=== PATIENT | female | born 1985 | race Caucasian/White ===

== ENCOUNTER 2017-10-02 12:54 | Emergency (ER) | payer OTHER ==
[2017-10-02 13:18] VITALS: BP 117/92
--- NOTE | 2017-10-02 13:44 | UC ---
Throat Pain/Nasal Wero HPI - HPI Summary HPI Summary: 1. sore throat x 1 day , no fever, + chills, fatigue, no cough, no nasal congestion 2. right wrist pain x 1 week. injury to right wrist one week ago, twisting injury - History of Current Complaint Chief Complaint: UCGeneralIllness Stated Complaint: ST AND RIGHT WRIST COMPLAINT Time Seen by Provider: 10/02/17 13:31 Hx Obtained From: Patient Hx Last Menstrual Period: CURRENT ?: No Onset/Duration: Gradual Onset, Lasting Days - 1, Still Present Severity: Moderate Pain Intensity: 6 Cough: None Associated Signs & Symptoms: Negative: Dysphagia, FB Sensation, Drooling, Wheezing, Hoarseness, Sinus Discomfort, Nasal Discharge, Fever, Rash - Allergies/Home Medications Allergies/Adverse Reactions: Allergies Allergy/AdvReac Type Severity Reaction Status Date / Time codeine Allergy Itching Verified 10/02/17 13:22 morphine Allergy Itching Verified 10/02/17 13:22 Penicillins Allergy Swelling Verified 10/02/17 13:22 Of Face,Lips,& Throat shellfish derived Allergy Itching Verified 10/02/17 13:22 PMH/Surg Hx/FS Hx/Imm Hx Previously Healthy: Yes - Surgical History Surgical History: Yes Surgery Procedure, Year, and Place: hx 4 c-sections 2004,2006,2008. Tubal - Family History Known Family History: Positive: Cardiac Disease, Hypertension - Social History Alcohol Use: Occasionally Substance Use Type: None Smoking Status (MU): Current Every Day Smoker Type: Cigarettes Amount Used/How Often: 1/2-1 1/2 ppd Length of Time of Smoking/Using Tobacco: 15 YRS Have You Smoked in the Last Year: Yes Household Exposure Type: Cigarettes Review of Systems Constitutional: Negative Skin: Negative Eyes: Negative ENT: Sore Throat Respiratory: Cough Cardiovascular: Negative Gastrointestinal: Negative Genitourinary: Negative Musculoskeletal: Other: - right wist pain Is Patient Immunocompromised?: No All Other Systems Reviewed And Are Negative: Yes Physical Exam Triage Information Reviewed: Yes Appearance: Well-Appearing, No Pain Distress, Well-Nourished Vital Signs: Initial Vital Signs Temp 99.0 F 10/02/17 13:12 Pulse 97 10/02/17 13:12 Resp 16 10/02/17 13:12 BP 117/92 10/02/17 13:12 Pulse Ox 99 10/02/17 13:12 Eye Exam: Normal Eyes: Positive: Conjunctiva Clear ENT: Positive: Normal ENT inspection, Hearing grossly normal, Pharynx normal, TMs normal. Negative: Nasal drainage Neck exam: Normal Neck: Positive: Supple, Nontender Respiratory: Positive: Chest non-tender, Lungs clear, Normal breath sounds Cardiovascular: Positive: RRR, No Murmur, Pulses Normal Abdominal Exam: Normal Musculoskeletal: Positive: Other: - right wrist : no swelling, + diffuse tenderness, pain with flexion and extension , Skin Exam: Normal Throat Pain/Nasal Course/Dx - Differential Dx/Diagnosis Provider Diagnoses: viral pharyngitis. sprain right wrist Discharge - Discharge Plan Condition: Stable Disposition: HOME Prescriptions: Naproxen [Naproxen EC 500 MG TAB] 500 mg PO BID #20 tablet. Patient Education Materials: Pharyngitis (ED), Wrist Sprain (ED) Forms: *Work Release Referrals: Zhanna Carpenter MD [Primary Care Provider] - 7 Days
== END 2017-10-02 13:44 | disposition home or self-care (01) ==
LOC: UCCORT 12:54
DX: J02.8 Acute pharyngitis due to other specified organisms (principal); S63.501A Unspecified sprain of right wrist, initial encounter; X50.1XXA Overexertion from prolonged static or awkward postures, initial encounter; Y93.9 Activity, unspecified; Y92.9 Unspecified place or not applicable; Z88.5 Allergy status to narcotic agent; Z88.0 Allergy status to penicillin; F17.210 Nicotine dependence, cigarettes, uncomplicated
CPT/HCPCS: 99212; G0463

== ENCOUNTER 2019-09-24 16:13 | Emergency (ER) | payer OTHER ==
[2019-09-24 16:59] VITALS: BP 102/78
--- NOTE | 2019-09-24 17:45 | UC ---
Back Pain HPI - HPI Summary HPI Summary: 34 yo female with chronic low back pain presents here after injuring back lifting boxes at work yesterday. pain is across lower back and spasmodic no bowel or bladder dysfunction no sciatica takes tylenol and diclofenac - History of Current Complaint Chief Complaint: UCBackPain Stated Complaint: BACK INJURY (WC) Time Seen by Provider: 09/24/19 17:34 Hx Obtained From: Patient Hx Last Menstrual Period: has had tubal Onset/Duration: Sudden Onset, Lasting Hours Timing: Constant Severity Initially: Severe Severity Currently: Severe Pain Intensity: 8 Pain Scale Used: 0-10 Numeric Back Pain: Is Diffuse Character: Throbbing, Spasmodic Aggravating Factor(s): Movement, Other - twisting Alleviating Factor(s): Nothing Associated Signs And Symptoms: Negative: Swelling, Redness, Bruising, Fever, Weakness, Abdominal Pain, Flank Pain, Bladder Incontinence, Bowel Incontinence, Weight Loss, Pain with Weight Bearing Related History: Similar Episode Dx As - back strain, Occupational Injury, Previous Back Injury Full Body (No Head): 1 - pain - Allergies/Home Medications Allergies/Adverse Reactions: Allergies Allergy/AdvReac Type Severity Reaction Status Date / Time codeine Allergy Itching Verified 09/24/19 16:59 morphine Allergy Itching Verified 09/24/19 16:59 Penicillins Allergy Swelling Verified 09/24/19 16:59 Of Face,Lips,& Throat shellfish derived Allergy Itching Verified 09/24/19 16:59 Sulfa (Sulfonamide Allergy Swelling Verified 09/24/19 16:59 Antibiotics) Of Face,Lips,& Throat Home Medications: Home Medications Acetaminophen [Extra Strength Non-Aspirin] 1,000 mg PO Q6H PRN 03/31/18 [ History Confirmed 09/24/19] Atorvastatin* [Lipitor 10 MG*] 40 mg PO QPM 03/31/18 [History Confirmed 09/24/19 ] Pnv No.95/Ferrous Fum/Folic AC [ Tablet] 1 tab PO DAILY 03/31/18 [ History Confirmed 09/24/19] Diclofenac Sodium EC TAB* [Voltaren EC TAB*] 50 mg PO BID 09/24/19 [History Confirmed 09/24/19] Erenumab-Aooe [Aimovig Autoinjector] 70 mg SQ MONTHLY 09/24/19 [History Confirmed 09/24/19] Omeprazole 20 mg PO DAILY 09/24/19 [History Confirmed 09/24/19] Topiramate TAB(*) [Topamax 25 MG tab] 50 mg PO BID 09/24/19 [History Confirmed 09/24/19] tiZANidine TAB* [Zanaflex TAB*] 2 mg PO TID PRN #15 tab 09/24/19 [Rx] PMH/Surg Hx/FS Hx/Imm Hx Previously Healthy: Yes Endocrine History: Dyslipidemia - Surgical History Surgical History: Yes Surgery Procedure, Year, and Place: hx 4 c-sections 2004,2006,2008. Tubal - Family History Known Family History: Positive: Cardiac Disease, Hypertension - Social History Alcohol Use: Rare Substance Use Type: None Smoking Status (MU): Light Every Day Tobacco Smoker Type: Cigarettes Amount Used/How Often: 1/2 ppd Length of Time of Smoking/Using Tobacco: 15 YRS Have You Smoked in the Last Year: Yes Household Exposure Type: Cigarettes Review of Systems All Other Systems Reviewed And Are Negative: Yes Constitutional: Positive: Negative Skin: Positive: Negative Eyes: Positive: Negative ENT: Positive: Negative Respiratory: Positive: Negative Cardiovascular: Positive: Negative Gastrointestinal: Positive: Negative Genitourinary: Positive: Negative Motor: Positive: Negative Neurovascular: Positive: Negative Musculoskeletal: Positive: Negative Neurological/Mental Status: Positive: Negative Psychological: Positive: Negative Physical Exam Triage Information Reviewed: Yes Appearance: Well-Appearing, No Pain Distress, Well-Nourished Vital Signs: Initial Vital Signs Temp 97.6 F 09/24/19 16:55 Pulse 78 09/24/19 16:55 Resp 16 09/24/19 16:55 BP 102/78 09/24/19 16:55 Pulse Ox 100 09/24/19 16:55 Vital Signs Reviewed: Yes Eyes: Positive: Conjunctiva Clear ENT: Positive: Hearing grossly normal. Negative: Nasal congestion, Nasal drainage, Tonsillar swelling, Tonsillar exudate, Hoarse voice Dental Exam: Normal Neck: Positive: Nontender, No Lymphadenopathy Respiratory: Positive: Lungs clear, Normal breath sounds, No respiratory distress, No accessory muscle use Cardiovascular: Positive: RRR, No Murmur Musculoskeletal: Positive: ROM Intact, No Edema Neurological: Positive: Alert Psychological Exam: Normal Skin Exam: Normal - Additional Comments Back- (-) SLR pain with twisting good flexion/extension Back Pain Course/Dx - Differential Dx/Diagnosis Provider Diagnosis: Acute myofascial strain of lumbar region Discharge ED - Sign-Out/Discharge Documenting (check all that apply): Patient Departure All imaging exams completed and their final reports reviewed: No Studies - Discharge Plan Condition: Stable Disposition: HOME Prescriptions: tiZANidine TAB* [Zanaflex TAB*] 2 mg PO TID PRN #15 tab PRN Reason: Spasms - Back Patient Education Materials: Low Back Strain (ED) Forms: *Work Release Referrals: Margarito Whitlock MD [Medical Doctor] - 1 Week (call tomorrow to set up an appt) - Billing Disposition and Condition Condition: STABLE Disposition: Home
== END 2019-09-24 18:00 | disposition home or self-care (01) ==
LOC: UCCORT 16:13
DX: S39.012A Strain of muscle, fascia and tendon of lower back, initial encounter (principal); E78.5 Hyperlipidemia, unspecified; F17.210 Nicotine dependence, cigarettes, uncomplicated; Z88.0 Allergy status to penicillin; Z88.2 Allergy status to sulfonamides; Z88.5 Allergy status to narcotic agent; Z91.013 Allergy to seafood; Z79.899 Other long term (current) drug therapy; X50.0XXA Overexertion from strenuous movement or load, initial encounter; Y92.9 Unspecified place or not applicable; Y99.0 Civilian activity done for income or pay
CPT/HCPCS: 99212; G0463

== ENCOUNTER 2024-01-01 14:18 | Inpatient (IN) ==
[2024-01-01 16:51] LABS: ABS Basophils 0.1 10^3/uL (0.0-0.1); ABS Lymphocytes 1.1 10^3/uL (1.0-4.8); ABS Monocytes 1.5 10^3/uL (0.0-0.9); ABS Neutrophils 18.2 10^3/uL (1.5-7.6); ABS Nucleated RBC 0.02 10^3/ul; Eosinophil % 0.2 %; Hematocrit 41.3 % (35-45); Hemoglobin 13.8 g/dL (11.5-14.3); Lymphocyte % 5.4 %; Mean Corpuscular Hemoglobin 29.7 pg (27-33); Mean Corpuscular Hgb Conc 33.5 g/dL (31-36); Mean Corpuscular Volume 88.9 fL (80-97); Mean Platelet Volume 8.1 fL (7.5-11.2); Nucleated Red Blood Cells % 0.1 %/100WBC (0.0-0.8); Platelet Count 445 10^3/uL (150-450); Red Blood Count 4.65 10^6/uL (3.63-4.92); Red Cell Distribution Width 14.4 % (12-17)
[2024-01-01 17:31] LABS: ALT 24 U/L (7-52); AST 18 U/L (13-39); Albumin/Globulin Ratio 1.5 (1-3); Alkaline Phosphatase 67 U/L (35-149); Anion Gap 6 mmol/L (2-16); Blood Urea Nitrogen 8 mg/dL (6-24); C Reactive Protein 40.22 mg/L (<8.01); CO2 Carbon Dioxide 32 mmol/L (22-32); Calcium 9.5 mg/dL (8.6-10.3); Chloride 96 mmol/L (101-111); Creatinine, Serum 0.59 mg/dL (0.51-0.95); Globulin 2.6 g/dL (2-4); Glucose 104 mg/dL (70-100); Magnesium 1.9 mg/dL (1.9-2.7); Potassium 4.4 mmol/L (3.5-5.0); Sodium 134 mmol/L (135-145); Total Bilirubin 0.5 mg/dL (0.2-1.0); Total Protein 6.6 g/dL (6.4-8.9); eGFR CKD-EPI 118.2 (>60)
[2024-01-01 17:36] LABS: HCG Pregnancy < 0.60 mIU/mL
[2024-01-01 17:37] LABS: Urine Appearance Extra Turbid; Urine Bilirubin Negative (Negative); Urine Blood 2+ (Negative); Urine Color Yellow; Urine Glucose Negative (Negative); Urine Ketones Negative (Negative); Urine Nitrite 2+ (Negative); Urine Protein 1+ (>=30 mg/dL) (Negative); Urine Specific Gravity 1.024 (1.002-1.030); Urine Urobilinogen Negative (Negative)
[2024-01-01 17:39] LABS: Urine Bacteria 3+ /HPF (Absent); Urine Red Blood Cell 1+(3-5/hpf) /HPF (0-Trace); Urine Squamous Epithelial Cell Present /HPF (Absent); Urine White Blood Cell 2+(11-20/hpf) /HPF (0-Trace)
[2024-01-01 18:57] LABS: Creatine Kinase 77 U/L (10-223)
[2024-01-01] MEDS: NS 0.9% 1000 ml BAG 1,000 ML IV ONE (19:11)
[2024-01-01] MEDS: Iohexol 300 (CONTRAST) 10 ML SDV IV ONE (22:40)
[2024-01-02] MEDS: Enoxaparin 40 MG/0.4 ML SYR SUBCUT SCH (01:57)
[2024-01-02] MEDS: cefTRIAXone 2 gm/50 mL D5W 2 GM/50 ML BAG IV SCH ×2 (02:34→21:41)
[2024-01-02 03:22] LABS: Erythrocyte Sed Rate 7 mm/Hr (0-19)
[2024-01-02] MEDS: metroNIDAZOLE IV 500 MG/100ML 500 MG/100 ML BAG IVPB SCH ×2 (03:54→13:42)
[2024-01-02 09:18] LABS: ABS Basophils 0.1 10^3/uL (0.0-0.1); ABS Eosinophils 0.1 10^3/uL (0.0-0.5); ABS Lymphocytes 1.7 10^3/uL (1.0-4.8); ABS Monocytes 1.2 10^3/uL (0.0-0.9); ABS Neutrophils 10.3 10^3/uL (1.5-7.6); Hematocrit 37.5 % (35-45); Hemoglobin 12.8 g/dL (11.5-14.3); Lymphocyte % 12.7 %; Mean Corpuscular Hemoglobin 30.2 pg (27-33); Mean Corpuscular Volume 88.7 fL (80-97); Mean Platelet Volume 7.8 fL (7.5-11.2); Platelet Count 406 10^3/uL (150-450); Red Blood Count 4.23 10^6/uL (3.63-4.92); Red Cell Distribution Width 14.1 % (12-17); White Blood Count 13.5 10^3/uL (3.8-11.8)
[2024-01-02] MEDS: Docusate LIQ 100 MG/10 ML UDC PO SCH (10:02)
[2024-01-02] MEDS: Polyethylene Glycol 3350 17 GM PACKET PO SCH (10:02)
[2024-01-02 10:21] LABS: Folate 5.64 ng/mL (5.90-24.80)
[2024-01-02] MEDS: Lactulose 30 ml UDC PO ONE (13:42)
[2024-01-02] MEDS ORDERED: Nicotine GUM 4MG FRUIT FLAVOR PO PRN (13:55)
[2024-01-02 14:30] LABS: Urine Benzodiazepine Screen None Detected (None Detect); Urine Buprenorphine Screen None Detected (None Detect); Urine Cannabinoids Screen None Detected (None Detect); Urine Fentanyl Screen None Detected (None Detect); Urine Hydrocodone Screen None Detected (None Detect); Urine Opiates Screen None Detected (None Detect)
[2024-01-02 14:46] LABS: Calcium 8.9 mg/dL (8.6-10.3); Creatinine, Serum 0.52 mg/dL (0.51-0.95); Potassium 4.3 mmol/L (3.5-5.0); eGFR CKD-EPI 121.9 (>60)
[2024-01-02] MEDS: Glycerin ADULT 2.4 gm SUPP PR ONE (20:09)
[2024-01-03 08:14] LABS: ABS Basophils 0.1 10^3/uL (0.0-0.1); ABS Eosinophils 0.2 10^3/uL (0.0-0.5); ABS Lymphocytes 1.4 10^3/uL (1.0-4.8); ABS Neutrophils 10.1 10^3/uL (1.5-7.6); ABS Nucleated RBC 0.01 10^3/ul; Eosinophil % 1.4 %; Hematocrit 34.9 % (35-45); Hemoglobin 11.8 g/dL (11.5-14.3); Lymphocyte % 10.9 %; Mean Corpuscular Hgb Conc 33.9 g/dL (31-36); Mean Corpuscular Volume 88.4 fL (80-97); Mean Platelet Volume 8.3 fL (7.5-11.2); Platelet Count 376 10^3/uL (150-450); Red Blood Count 3.95 10^6/uL (3.63-4.92); Red Cell Distribution Width 13.9 % (12-17); White Blood Count 12.9 10^3/uL (3.8-11.8)
[2024-01-03 08:49] LABS: Calcium 8.8 mg/dL (8.6-10.3); Creatinine, Serum 0.46 mg/dL (0.51-0.95); Magnesium 1.8 mg/dL (1.9-2.7); Potassium 4.3 mmol/L (3.5-5.0); eGFR CKD-EPI 125.5 (>60)
[2024-01-03 10:09] LABS: C Reactive Protein 116.73 mg/L (<8.01)
[2024-01-04 06:51] LABS: ABS Basophils 0.1 10^3/uL (0.0-0.1); ABS Eosinophils 0.3 10^3/uL (0.0-0.5); ABS Lymphocytes 1.7 10^3/uL (1.0-4.8); ABS Monocytes 0.9 10^3/uL (0.0-0.9); ABS Neutrophils 5.3 10^3/uL (1.5-7.6); Eosinophil % 3.2 %; Hematocrit 37.5 % (35-45); Hemoglobin 12.8 g/dL (11.5-14.3); Mean Corpuscular Hemoglobin 30.2 pg (27-33); Mean Corpuscular Hgb Conc 34.1 g/dL (31-36); Mean Corpuscular Volume 88.7 fL (80-97); Mean Platelet Volume 8.1 fL (7.5-11.2); Platelet Count 421 10^3/uL (150-450); Red Blood Count 4.23 10^6/uL (3.63-4.92); Red Cell Distribution Width 14.3 % (12-17); White Blood Count 8.3 10^3/uL (3.8-11.8)
[2024-01-04 07:30] LABS: Calcium 8.6 mg/dL (8.6-10.3); Creatinine, Serum 0.59 mg/dL (0.51-0.95); Magnesium 1.9 mg/dL (1.9-2.7); Potassium 4.7 mmol/L (3.5-5.0); eGFR CKD-EPI 118.2 (>60)
[2024-01-04] MEDS: Glycerin ADULT 2.4 gm SUPP PR ONE ×2 (09:29→13:12)
[2024-01-04 13:42] LABS: SS-A/Ro Antibody <0.2 U; SS-B/La Antibody <0.2 U
[2024-01-04 21:20] LABS: Anaplasma phagocytophilum Negative (Negative); B. miyamotoi PCR, B Negative (Negative); Babesia divergens/MO-1 Negative (Negative); Babesia ducani Negative (Negative); Ehrlichia chaffeensis Negative (Negative); Ehrlichia ewingii/canis Negative (Negative); Ehrlichia muris eauclairensis Negative (Negative)
[2024-01-05] MEDS: Magic MouthWash1-BEN/MAAL/LIDO 180 ML BTL SWISH SWAL SCH (05:45)
[2024-01-05] MEDS ORDERED: Senna TAB 8.6 mg TAB PO PRN (07:41)
[2024-01-05 07:48] LABS: ABS Basophils 0.1 10^3/uL (0.0-0.1); ABS Eosinophils 0.2 10^3/uL (0.0-0.5); ABS Lymphocytes 1.3 10^3/uL (1.0-4.8); ABS Monocytes 0.9 10^3/uL (0.0-0.9); ABS Neutrophils 6.6 10^3/uL (1.5-7.6); Eosinophil % 2.4 %; Hematocrit 36.5 % (35-45); Hemoglobin 12.4 g/dL (11.5-14.3); Lymphocyte % 14.6 %; Mean Corpuscular Volume 88.2 fL (80-97); Mean Platelet Volume 7.9 fL (7.5-11.2); Platelet Count 432 10^3/uL (150-450); Red Blood Count 4.14 10^6/uL (3.63-4.92); Red Cell Distribution Width 14.2 % (12-17); White Blood Count 9.1 10^3/uL (3.8-11.8)
[2024-01-05 08:29] LABS: Calcium 8.8 mg/dL (8.6-10.3); Creatinine, Serum 0.61 mg/dL (0.51-0.95); Magnesium 1.9 mg/dL (1.9-2.7); Potassium 5.1 mmol/L (3.5-5.0); eGFR CKD-EPI 117.3 (>60)
[2024-01-05] MEDS: Iohexol 350 (CONTRAST) 500 ML MDV IV ONE (17:31)
[2024-01-05] MEDS: Senna TAB 8.6 mg TAB PO SCH (21:10)
[2024-01-06] MEDS: methylPREDNISolone SOD SUCC 1000 MG ML VIAL IVPB SCH (12:37)
[2024-01-06] MEDS: SMOG Enema (MgOH-NS-Gly-MinO) 330 ML ENEMA PR ONE (12:37)
[2024-01-06] MEDS: Pantoprazole VIAL 40 MG VIAL IV SCH (12:46)
[2024-01-06] MEDS: Ondansetron 4 mg VIAL 2 MG/ML 2 ml VIAL IV ONE (13:26)
[2024-01-06] MEDS: methylPREDNISolone SOD SUCC 1000 MG in NS 0.9% 100 ML IVPB SCH (14:15)
[2024-01-06] MEDS: Acetaminophen IV 1 GM/100ML 1,000 MG/100 ML BAG IV PRN (19:55)
[2024-01-07 07:03] LABS: Calcium 9.3 mg/dL (8.6-10.3); Creatinine, Serum 0.56 mg/dL (0.51-0.95); Magnesium 1.9 mg/dL (1.9-2.7); Potassium 5.2 mmol/L (3.5-5.0); eGFR CKD-EPI 119.7 (>60)
[2024-01-07] MEDS: PEG 3000 GI LAVAGE 1 GALLON PO ONE (09:54)
[2024-01-07] MEDS: SODIUM ZIRCONIUM CYCLOSILICATE 5 GM PACKET PO ONE (09:54)
[2024-01-07] MEDS: Ondansetron 4 mg VIAL 2 MG/ML 2 ml VIAL IV PRN (09:56)
[2024-01-07] MEDS: Prochlorperazine 5 mg/ml 2 ml VIAL (10 mg) IV ONE (11:12)
[2024-01-07 12:49] LABS: HIV 4th Generation Nonreactive (Nonreactive)
[2024-01-07 14:57] LABS: Body Fluid Source Cerebral Spinal
[2024-01-07 15:11] LABS: Body Fluid Appearance Clear; Body Fluid Color Colorless; CSF Tube # 4
[2024-01-07 15:15] LABS: CSF Glucose 80 mg/dL (40-70)
[2024-01-07 15:39] LABS: Body Fluid Mono 59 %; Body Fluid Total Cells Counted 200; Body Fluid Variant Lymph 1 %
[2024-01-07 15:46] LABS: CSF Body Fluid WBC 91 /mcL
[2024-01-07] MEDS: [UNRECOGNIZED DRUG - MIXTURE] IV SCH ×2 (19:28→23:06)
[2024-01-08 06:54] LABS: ABS Lymphocytes 0.8 10^3/uL (1.0-4.8); ABS Monocytes 0.5 10^3/uL (0.0-0.9); ABS Neutrophils 12.5 10^3/uL (1.5-7.6); Hematocrit 36.3 % (35-45); Hemoglobin 12.3 g/dL (11.5-14.3); Lymphocyte % 5.8 %; Mean Corpuscular Hemoglobin 30.1 pg (27-33); Mean Corpuscular Volume 88.6 fL (80-97); Mean Platelet Volume 8.1 fL (7.5-11.2); Platelet Count 423 10^3/uL (150-450); White Blood Count 13.7 10^3/uL (3.8-11.8)
[2024-01-08 07:11] LABS: Calcium 8.9 mg/dL (8.6-10.3); Creatinine, Serum 0.59 mg/dL (0.51-0.95); Magnesium 1.8 mg/dL (1.9-2.7); Potassium 4.7 mmol/L (3.5-5.0); eGFR CKD-EPI 118.2 (>60)
[2024-01-08] MEDS: Magnesium CITRATE LIQ 300 ML BTL PO ONE (08:24)
[2024-01-08] MEDS: Magnesium Sulfate 2 gm BAG 2 GM/50 ML BAG IVPB ONE (08:24)
[2024-01-08] MEDS: Lactulose 300 ML for PR 200 GM/300 ML BTL PR SCH (22:56)
[2024-01-09 05:30] LABS: ABS Lymphocytes 1.5 10^3/uL (1.0-4.8); ABS Monocytes 1.3 10^3/uL (0.0-0.9); ABS Neutrophils 14.1 10^3/uL (1.5-7.6); Hematocrit 39.3 % (35-45); Lymphocyte % 8.6 %; Mean Corpuscular Hemoglobin 29.6 pg (27-33); Mean Corpuscular Volume 89.6 fL (80-97); Mean Platelet Volume 8.1 fL (7.5-11.2); Platelet Count 389 10^3/uL (150-450); Red Blood Count 4.39 10^6/uL (3.63-4.92); Red Cell Distribution Width 14.4 % (12-17); White Blood Count 16.9 10^3/uL (3.8-11.8)
[2024-01-09 05:47] LABS: Calcium 8.5 mg/dL (8.6-10.3); Creatinine, Serum 0.77 mg/dL (0.51-0.95); Magnesium 2.7 mg/dL (1.9-2.7); Potassium 4.5 mmol/L (3.5-5.0); eGFR CKD-EPI 101.2 (>60)
[2024-01-09] MEDS: PEG 3000 GI LAVAGE 1 GALLON PO ONE (08:30)
[2024-01-09 16:59] LABS: CSF Oligoclonal Bands 6 bands; Oligoclonal Proteins Interpret 1 bands (<2); Serum Oligoclonal Bands 5 bands
[2024-01-09] MEDS: CMCS:LINACLOTIDE 72 MCG CAP (NF) PO SCH (17:15)
[2024-01-10 08:09] LABS: ABS Lymphocytes 1.7 10^3/uL (1.0-4.8); ABS Monocytes 0.8 10^3/uL (0.0-0.9); ABS Neutrophils 6.2 10^3/uL (1.5-7.6); Eosinophil % 0.1 %; Hematocrit 37.2 % (35-45); Hemoglobin 12.5 g/dL (11.5-14.3); Lymphocyte % 19.9 %; Mean Corpuscular Hemoglobin 29.7 pg (27-33); Mean Corpuscular Hgb Conc 33.5 g/dL (31-36); Mean Corpuscular Volume 88.6 fL (80-97); Mean Platelet Volume 8.2 fL (7.5-11.2); Platelet Count 344 10^3/uL (150-450); White Blood Count 8.8 10^3/uL (3.8-11.8)
[2024-01-10 09:09] LABS: Cytomegalovirus IgG Antibody Positive (Negative)
[2024-01-10] MEDS: DULoxetine DR 30 mg CAP PO ONE (11:26)
[2024-01-10 12:12] LABS: Albumin, CSF 36.1 mg/dL (<=27.0); Albumin, S 3100 mg/dL; IgG Index, CSF 0.57 (<=0.85); IgG, CSF 7.3 mg/dL (<=8.1); IgG, S 1080 mg/dL (767 - 1590); IgG/Albumin, S 0.35 (<=0.40); Synthesis Rate, CSF 7.36 mg/24 h (<=12)
[2024-01-10] MEDS: PEG 3000 GI LAVAGE 1 GALLON PO ONE (12:23)
[2024-01-10 12:34] LABS: EBV Capsid Ag IgG Ab Positive (Negative); EBV Capsid Ag IgM Ab Negative (Negative); Epstein-Barr Nuclear Antigen Positive (Negative)
[2024-01-10] MEDS ORDERED: DULoxetine DR 30 mg CAP PO SCH (21:00)
[2024-01-11 06:56] LABS: Hematocrit 36.7 % (35-45); Hemoglobin 12.5 g/dL (11.5-14.3); Mean Corpuscular Hemoglobin 29.9 pg (27-33); Mean Corpuscular Volume 87.9 fL (80-97); Mean Platelet Volume 8.3 fL (7.5-11.2); Platelet Count 337 10^3/uL (150-450); Red Blood Count 4.18 10^6/uL (3.63-4.92); Red Cell Distribution Width 14.2 % (12-17); White Blood Count 7.1 10^3/uL (3.8-11.8)
[2024-01-11 07:22] LABS: Magnesium 1.8 mg/dL (1.9-2.7)
[2024-01-11] MEDS: Magnesium Sulfate 2 gm BAG 2 GM/50 ML BAG IVPB ONE (08:19)
[2024-01-11 08:32] LABS: Asialo GM1 IgG Antibody Negative (Negative); Asialo GM1 IgM Antibody Negative (Negative); Disialo GD1b IgG Antibody Negative (Negative); Disialo GD1b IgM Antibody Negative (Negative); Monosialo GM1 IgG Antibody Negative (Negative); Monosialo GM1 IgM Antibody Negative (Negative)
[2024-01-11] MEDS ORDERED: Senna TAB 8.6 mg TAB PO PRN (10:00)
[2024-01-11] MEDS: DULoxetine DR 30 mg CAP PO SCH (11:16)
[2024-01-11 15:41] LABS: Pyridoxal 5-Phosphate (PLP), P 3 mcg/L (5-50)
[2024-01-11 16:47] LABS: Varicella-Zoster IgM Antibody Negative (Negative)
[2024-01-11] MEDS: Lactulose 300 ML for PR 200 GM/300 ML BTL PR ONE (17:26)
[2024-01-11 22:55] LABS: C Reactive Protein 4.66 mg/L (<8.01)
[2024-01-11] MEDS: Morphine 2 MG/ML SYRINGE IV ONE (22:59)
[2024-01-12] LABS: Enterovirus Source CSF
[2024-01-12] MEDS: fentaNYL 100 mcg/2 ml 50 MCG/ML VIAL IV SLOW PU PRN (00:05)
[2024-01-13] MEDS: HYDROmorphone 1 MG/1 ML SYRINGE IV SLOW PU PRN (02:11)
[2024-01-14 08:18] LABS: ABS Monocytes 0.5 10^3/uL (0.0-0.9); ABS Neutrophils 4.5 10^3/uL (1.5-7.6); Eosinophil % 0.2 %; Hematocrit 37.5 % (35-45); Hemoglobin 12.8 g/dL (11.5-14.3); Lymphocyte % 28.4 %; Mean Corpuscular Hemoglobin 29.9 pg (27-33); Mean Corpuscular Hgb Conc 34.3 g/dL (31-36); Mean Corpuscular Volume 87.4 fL (80-97); Mean Platelet Volume 8.5 fL (7.5-11.2); Nucleated Red Blood Cells % 0.1 %/100WBC (0.0-0.8); Platelet Count 364 10^3/uL (150-450); Red Blood Count 4.29 10^6/uL (3.63-4.92); Red Cell Distribution Width 13.8 % (12-17); White Blood Count 7.1 10^3/uL (3.8-11.8)
[2024-01-14] MEDS: Senna TAB 8.6 mg TAB PO SCH (08:40)
[2024-01-14 08:56] LABS: Albumin 3.4 g/dL (3.2-5.2); Albumin/Globulin Ratio 0.8 (1-3); Calcium 8.9 mg/dL (8.6-10.3); Creatinine, Serum 0.56 mg/dL (0.51-0.95); Globulin 4.4 g/dL (2-4); Potassium 4.7 mmol/L (3.5-5.0); Total Bilirubin 0.5 mg/dL (0.2-1.0); Total Protein 7.8 g/dL (6.4-8.9); eGFR CKD-EPI 119.7 (>60)
[2024-01-14 19:18] LABS: Magnesium 1.7 mg/dL (1.9-2.7)
[2024-01-14] MEDS: Gadoteridol (CONTRAST) 279.3 MG/ML 10 ML IV ONE (21:32)
[2024-01-14] MEDS: Carbamide Peroxide 6.5% OTIC 15 ML BTL BOTH EARS SCH (21:32)
[2024-01-14] MEDS: Magnesium Sulfate 2 gm BAG 2 GM/50 ML BAG IVPB ONE (21:43)
[2024-01-15] MEDS: Iohexol 350 (CONTRAST) 500 ML MDV IV ONE (11:05)
[2024-01-15] MEDS: Polyethylene Glycol 3350 17 GM PACKET PO PRN (20:51)
[2024-01-16 09:45] VITALS: BP 111/76
[2024-01-17 16:52] LABS: AGNA-1, CSF Negative (Negative); Amphiphysin Ab, CSF Negative (Negative); CRMP-5-IgG, CSF Negative (Negative); IFA Notes None.; PCA-1, CSF Negative (Negative); PCA-2, CSF Negative (Negative); PCA-Tr, CSF Negative (Negative)
== END 2024-01-16 13:40 | DRG 114 ==
LOC: EDHOLD 14:18 → ED 14:18 → SUATTDRO 01-02 00:38 → MED 01-02 07:34 → SUATTDRO 01-04 14:00
PROVIDERS: ADMIT Internal Medicine; ATTEND Internal Medicine